=== PATIENT | female | born 1945 | race Caucasian/White ===

== ENCOUNTER → 2016-11-10 22:04 | Outpatient (CLI) | payer MEDICARE, OTHER ==
[~2016-11-10 22:04] MED LIST: ACETAMINOPHEN325 MG PO; ADVIL200 MG PO; FLAGYL500 MG PO; FLORAJEN3 CAPS460 MG PO; HYDROCHLOROTHIA25 MG PO; OMEPRAZOLE20 M1 PO; UROCIT-K10 MEQ PO; VANCOMYCIN250 MG/51 PO
[2016-11-13 12:58] VITALS: BMI 28.7
== END | disposition home or self-care (01) ==
LOC: D.LABREF 22:04
DX: R19.7 Diarrhea, unspecified (principal)

== ENCOUNTER 2016-11-11 14:41 | Inpatient (IN) | payer MEDICARE, OTHER ==
[~2016-11-11] VITALS: Ht 152.4 cm; Wt 66.7 kg
[2016-11-11 15:39] VITALS: BP 115/62; BMI 28.7
--- NOTE | 2016-11-11 15:40 | NUR ---
PT ARRIVED VIA WHEELCHAIR VIA SPOUSE WITHOUT N/V AT THIS TIME. RESP EVEN AND NONLABORED LUNG SOUNDS CLEAR ABD. SOFT AND NONTENDER PT. DENIES PAIN AT THIS TIME. PT. C/O NAUSEA AT THIS TIME. SKIN PINK WARM AND DRY WITH GOOD TURGOR NO EDEMA CAPILLARY REFILL <3 SEC. 22G IV IN RIGHT FOREARM PATENT AND INTACT. BED AT LOWEST POSITION AND CALL LIGHT WITHIN REACH WILL CONTINUE TO MONITOR
[2016-11-11 16:02] VITALS: BP 115/62
[2016-11-11] MEDS ORDERED: FLAGYL500 MG PO (16:20)
[2016-11-11 16:24] LABS: HEMATOCRIT 39.8 % (36.0-48.0); HEMOGLOBIN 13.8 g/dL (12-16); MCH 29.6 pg (26.0-34.0); MCHC 34.7 g/dL (31.0-37.0); MCV 85.2 fL (80.0-100.0); MEAN PLATELET VOLUME 10.2 fL (7.4-10.4); PLATELET COUNT 208 10x3/uL (130-400); RBC 4.67 10x6/uL (4.00-5.40); RDW 13.5 % (11.5-14.5); WBC 9.5 10x3/uL (4.8-10.8)
[2016-11-11] MEDS ORDERED: UROCIT-K10 MEQ PO (16:26)
[2016-11-11 16:49] LABS: ALBUMIN 2.7 g/dL (3.4-5.0); ANION GAP 8.8 mmol/L (8-16); BILIRUBIN - DIRECT 0.25 mg/dL (0.00-0.30); BILIRUBIN - INDIRECT 0.37 mg/dL (0.00-1.00); BILIRUBIN - TOTAL 0.62 mg/dL (0.2-1.3); CALCIUM 7.9 mg/dL (8.5-10.1); CARBON DIOXIDE 33.1 mmol/L (21.0-32.0); CREATININE - SERUM 1.2 mg/dL (0.6-1.3); PROTEIN - SERUM 6.2 g/dL (6.4-8.2)
[2016-11-11 16:50] LABS: EOSINOPHILS 3 % (0-7); LYMPHOCYTES 23 % (15-50); MONOCYTES 4 % (2-11); NEUTROPHILS 44 % (40-80)
[2016-11-11 16:52] LABS: PLATELET ESTIMATE NORMAL
[2016-11-11 16:53] LABS: POTASSIUM - SERUM 2.9 mmol/L (3.5-5.1)
[2016-11-11 20:00] VITALS: BP 96/48
[2016-11-11] MEDS ORDERED: HYDROCHLOROTHIA25 MG PO (20:20)
[2016-11-11] MEDS ORDERED: ADVIL200 MG PO (20:21)
[2016-11-11] MEDS ORDERED: ACETAMINOPHEN325 MG PO (20:21)
[2016-11-11] MEDS ORDERED: OMEPRAZOLE20 M1 PO (20:23)
[2016-11-12] VITALS: BP 114/58
--- NOTE | 2016-11-12 01:19 | NUR ---
ASSESSED AT THE BEGINNING OF THE SHIFT. PT IS ALERT AND ORIENTED, ABLE TO VERBALIZE NEEDS. HER SON WAS VISITING AT THE BEGINNING AND THEN WENT HOME. ISOLATION REMAINS IN PLACE FOR C-DIFF. A STOOL WAS COLLECTED AND RESULTS CONFIRMS DX. SHE IS ABLE TO GET UP TO THE BATHROOM TO VOID BUT HER STOOLS ARE JUS LIKE WATER. THE BED IS LOW, RAILS UP X'S 2 WITH THE CALL LIGHT AT HAND.
[2016-11-12 04:00] VITALS: BP 91/49
[2016-11-12 06:33] LABS: HEMOGLOBIN 11.9 g/dL (12-16); MCH 28.9 pg (26.0-34.0); MEAN PLATELET VOLUME 10.9 fL (7.4-10.4); PLATELET COUNT 236 10x3/uL (130-400); RBC 4.12 10x6/uL (4.00-5.40); RDW 13.6 % (11.5-14.5)
[2016-11-12 06:40] LABS: ANION GAP 8.8 mmol/L (8-16); CALCIUM 7.7 mg/dL (8.5-10.1); CARBON DIOXIDE 28.3 mmol/L (21.0-32.0); CREATININE - SERUM 1.1 mg/dL (0.6-1.3); MAGNESIUM - SERUM 1.6 mg/dL (1.8-2.4); POTASSIUM - SERUM 3.1 mmol/L (3.5-5.1)
[2016-11-12 06:43] LABS: PHOSPHOROUS 1.4 mg/dL (2.5-4.9)
[2016-11-12 07:36] LABS: EOSINOPHILS 2 % (0-7); LYMPHOCYTES 20 % (15-50); MONOCYTES 19 % (2-11); NEUTROPHILS 29 % (40-80); PLATELET ESTIMATE NORMAL
[2016-11-12 07:53] VITALS: BP 130/73
--- NOTE | 2016-11-12 08:10 | HP ---
PATIENT: CHICHO PARRA MEDICAL RECORD: [id number] ACCOUNT: [id number] LOCATION:[id number] : 43 ADMISSION DATE: 11/11/16 HISTORY AND PHYSICAL EXAMINATION REASON FOR ADMISSION: Vomiting, severe diarrhea and fevers. HISTORY OF PRESENT ILLNESS: The patient is a 71-year-old female who had have outpatient pneumonia, treated with Levaquin and Zithromax 3 weeks ago. She felt well about 3 days ago when she developed onset of some diarrhea and nausea. Diarrhea was somewhat foul. She had some vague abdominal pain as well. She came to the office yesterday afternoon and white count was 11,000. Her potassium was low at 3.2 and sodium was 130. I recommended admission to the hospital for possible C. diff diarrhea, but she deferred to outpatient therapy. She was started on oral Flagyl and potassium and cannot tolerate these. This morning, she was somewhat confused and had low-grade fever has now been direct admitted to the hospital. She denies severe abdominal pain or gross bloody diarrhea. PAST MEDICAL HISTORY: Type 2 diabetes mellitus, essential hypertension, carpal tunnel syndrome bilaterally, history of diverticulitis, osteoarthritis, RLS, postmenopausal. PAST SURGICAL HISTORY: Laparoscopic cholecystectomy, TAHBSO with vaginal bladder suspension. SOCIAL HISTORY: Nonsmoker, nondrinker lifelong. She is . ALLERGIES: CODEINE CAUSING NAUSEA AND VOMITING. FAMILY HISTORY: Father at 79, had a lumbar fusion, MRSA infection, heart disease. Mother at 91. She had glaucoma, macular degeneration. One brother with diabetes and alcoholism. MEDICATIONS: Xanax 0.25 q.6 hours p.r.n. anxiety, diclofenac 50 mg b.i.d. p.c., HCTZ 25 mg p.o. q.a.m., metformin 500 mg at h.s., pravastatin 20 mg at h.s., Prilosec 20 mg daily, triamterene 1 q.a.m. REVIEW OF SYSTEMS: GENERAL: She has felt weak for about a week to 10 days. Low-grade fever in the last 3-4 days. Poor appetite. HEENT: No recent visual change, sinus congestion, or sore throat. RESPIRATORY: No SOB or cough. CARDIAC: No chest pain, claudication, palpitations or dizziness. GASTROINTESTINAL: She has had nausea with intermittent vomiting worse since starting Flagyl. She has had 5-6 malodorous stool a day of some with some blood noted in the stool. GENITOURINARY: Denies incontinence or dysuria. GYNECOLOGICAL: No vaginal bleeding. She is postmenopausal, 1. ENDOCRINE: Denies polyuria, polydipsia, heat or cold intolerance. NEUROLOGIC: No history of stroke, TIA, or vascular headaches. PSYCHIATRIC: Denies depression. PHYSICAL EXAMINATION: VITAL SIGNS: Temperature is 99.9 degrees Fahrenheit orally, pulse 92 and HISTORY AND PHYSICAL [id number] CHICHO PARRA regular, respirations are 18, blood pressure 115/62 with a sat of 93% on room air. GENERAL: The patient is alert and oriented. HEENT: Eyes are clear and nonicteric. Oropharynx unremarkable except for dry mucous membranes. NECK: Supple, without bruits or masses. CHEST: Clear. HEART: Regular rate without MGR. PMI appropriate. BREASTS: Symmetrical. ABDOMEN: Soft, minimally tender in the right upper quadrant. No rebound. Bowel sounds are hyperactive. Stools trace heme positive C. diff positive. EXTREMITIES: No CC&E. INTEGUMENT: No rash or icterus. NEUROLOGIC: Oriented times 3. Cranial nerves intact. Gait normal. LABORATORY DATA: White count 9500, H&H of 13 and 39.8, platelet count 208,000. Differential white count shows 44 neutrophils with 26 bands, 23 lymphs. Chemistry shows potassium low at 2.9, sodium 128, CO2 of 33.1, anion gap of 8, BUN 15, creatinine 1.2, glucose 182. Liver functions are normal. Lab amylase and lipase are normal. Hepatitis screen is pending. Stools shows positive C. diff. Culture is pending. Acute abdominal series is pending as well. ASSESSMENT: 1. Clostridium difficile colitis. 2. Hyponatremia. 3. Hypokalemia. 4. Diabetes mellitus. 5. Bandemia. 6. Hypertension, hyperlipidemia, postmenopausal, post-hysterectomy. PLAN: The patient admitted for IV fluid hydration, replacing electrolytes, IV Flagyl. Further workup to follow. TRANSINT:[id number] Voice Confirmation ID: [id number] DOCUMENT ID: [id number] RADHA CHING MD at 0810 CC: [id number] DICTATION DATE: 11/11/16 3428 FURNITURE ASSEMBLER: 11/11/16 2346 ADM IN [facility] [address] [id number]
--- NOTE | 2016-11-12 08:11 | NUR ---
AWAKE AND ALERT. ORIENTED X 3. DR. CHING HERE. LUNGS ARE CLEAR BILATERALLY, NO COUGH NOTED. SKIN IS INTACT WITHOUT REDNESS. SCD'S OFF AT THIS TIME. IV TO RIGHT FOREARM IS PATNET WITHOUT REDNESS AT INSERTION SITE. AT BEDSIDE. DENIES NEEDS.
--- NOTE | 2016-11-12 10:41 | NUR ---
RESTING QUIETLY IN BED VERY ANIMATED TODAY. REPORTS FEELING BETTER.
[2016-11-12 11:10] VITALS: BP 132/70
--- NOTE | 2016-11-12 12:30 | NUR ---
FSBS 155. GIVEN 2 UNITS REGULAR INSULIN SUBQ PER SS. LUNCH SERVED IN ROOM.
[2016-11-12 15:56] VITALS: BP 136/62
[2016-11-12 17:52] LABS: APPEARANCE HAZY (CLEAR); BILIRUBIN NEGATIVE (NEGATIVE); COLOR DK YELLOW (YELLOW); GLUCOSE NEGATIVE (NEGATIVE); KETONE NEGATIVE (NEGATIVE); LEUKOCYTE ESTERASE TRACE (NEGATIVE); NITRITE POSITIVE (NEGATIVE); PROTEIN NEGATIVE (NEGATIVE); SPECIFIC GRAVITY 1.015 (1.005-1.020); UROBILINOGEN NORMAL (NORMAL)
[2016-11-12 17:55] LABS: BACTERIA MODERATE /hpf (NONE SEEN); MUCUS <1+ /lpf (NONE SEEN); RED CELLS - URINE 0-5 /hpf (0-5); WHITE CELLS - URINE 0-5 /hpf (0-5)
--- NOTE | 2016-11-12 18:47 | NUR ---
ATE ALMOST ALL OF SUPPER. FSBS WAS 137 PRIOR TO MEAL. NO COVERAGE. DENIES NEEDS. NO CHANGES NOTED.
[2016-11-12 19:00] VITALS: BP 95/54
--- NOTE | 2016-11-13 02:00 | NUR ---
PATIENT IS RESTING IN BED COMFORTABLY. DENIES NEEDS @ THIS TIME INTRUCTED TO CALL IF NEEDED ANYTHING. VERBALIZED UNDERSTANDING. BED LOW, LOCKED, CALL LIGHT IN REACH.
--- NOTE | 2016-11-13 02:38 | NUR ---
REC'D PATIENT LYING SEMI FOWLERS IN BED. ALERT AND ORIENTED X4. DENIES PAIN @ THIS TIME. MUCUS MEMBRANES PINK AND MOIST. DENIES HEARING AND VISION PROBLEMS. LUNGS CLEAR IN ALL LOBES. ABDOMEN SOFT NON TENDER TO TOUCH. REPORTED LAST BM 11/12/16, STATED SHE HAS HAD DIARREA AND WOULD LIKE TO GET SOMTHING TO HELP HER STOP. IS ON CONTACT ISOLATION. FULL ROM IN UPPER AND LOWER EXTREMITIES. CAP REFILL <3 SECS. HAS RIGHT FA RUNNING AT 125ML. SKIN WARM, DRY, AND INTACT. DENIES ANY FURTHER NEEDS. INSTRUCTED TO CALL IF NEEDED ANYTHING. PATIENT VERBALIZED UNDERSTANDING. BED LOW, LOCKED, CALL LIGHT IN REACH.
--- NOTE | 2016-11-13 03:14 | NUR ---
EYES CLOSED RESPIRATIONS WITH EASE AND UNLABORED.
[2016-11-13 04:00] VITALS: BP 97/54
[2016-11-13 06:57] LABS: BASOPHILS 0.1 % (0.0-2.0); EOSINOPHILS 6.6 % (0-7); HEMATOCRIT 32.5 % (36.0-48.0); HEMOGLOBIN 10.8 g/dL (12-16); LYMPHOCYTES 21.1 % (15-50); MCH 28.6 pg (26.0-34.0); MCHC 33.2 g/dL (31.0-37.0); MCV 86.2 fL (80.0-100.0); MEAN PLATELET VOLUME 10.7 fL (7.4-10.4); MONOCYTES 12.5 % (2-11); NEUTROPHILS 58.7 % (40-80); PLATELET COUNT 220 10x3/uL (130-400); RBC 3.77 10x6/uL (4.00-5.40); RDW 14.3 % (11.5-14.5); WBC 7.9 10x3/uL (4.8-10.8)
[2016-11-13 07:16] LABS: ANION GAP 7.7 mmol/L (8-16); CALCIUM 7.3 mg/dL (8.5-10.1); CREATININE - SERUM 0.9 mg/dL (0.6-1.3); MAGNESIUM - SERUM 1.8 mg/dL (1.8-2.4)
[2016-11-13 07:20] LABS: PHOSPHOROUS 1.5 mg/dL (2.5-4.9); POTASSIUM - SERUM 3.7 mmol/L (3.5-5.1)
--- NOTE | 2016-11-13 07:41 | NUR ---
PATIENT IS IN ENTERIC ISOLATION. ISOLATION PRECAUTIONS MAINTAINED. PATIENT IS AWAKE, ALERT AND ORIENTED X'S 4. RESPIRATIONS ARE EVEN AND UNLABORED ON ROOM AIR. PATIENT DENIES NEEDS. BED IN LOWEST POSITION, CALL LIGHT IN REACH.
--- NOTE | 2016-11-13 07:45 | NUR ---
SITTING IN BED, DENIES NEEDS, ALERT AND ORIENTED, CALL LIGHT IN REACH, BED LOWEST POSITION, WILL CONTINUE TO MONITOR
[2016-11-13 08:14] VITALS: BP 107/54
[2016-11-13 12:07] VITALS: BP 112/64
[2016-11-13 12:58] VITALS: Ht 152.4 cm; Wt 66.7 kg
[2016-11-13 15:29] VITALS: BP 105/62
--- NOTE | 2016-11-13 19:50 | NUR ---
ASSESSMENT COMPLETED, NO ACUTE DISTRESS NOTED, VISITOR IN ROOM, PT DENIES PAIN OR NEEDS AT THIS TIME, ISOLATION AND FALL PRECAUTIONS IN PLACE, CL IN REACH, WILL MONITOR
--- NOTE | 2016-11-13 20:55 | NUR ---
MEDS GIVEN PER MAR, MELISSA WELL, DENIES NEEDS AT THIS TIME, CL IN REACH
--- NOTE | 2016-11-13 21:45 | NUR ---
LYING IN BED AWAKE, DENIES NEEDS, CL IN REACH
--- NOTE | 2016-11-13 23:41 | NUR ---
RESTING WITH EYES CLOSED, RESP WITH EASE, NO DISTRESS NOTED, CL IN REACH
[2016-11-14] VITALS: BP 104/56
[2016-11-14 04:00] VITALS: BP 139/70
[2016-11-14 05:09] LABS: BASOPHILS 0.2 % (0.0-2.0); EOSINOPHILS 5.1 % (0-7); HEMOGLOBIN 11.1 g/dL (12-16); IMMATURE GRANULOCYTES 1.3 % (0-5); LYMPHOCYTES 20.8 % (15-50); MCH 28.6 pg (26.0-34.0); MCHC 32.6 g/dL (31.0-37.0); MCV 87.6 fL (80.0-100.0); MEAN PLATELET VOLUME 10.8 fL (7.4-10.4); MONOCYTES 10.2 % (2-11); NEUTROPHILS 62.4 % (40-80); PLATELET COUNT 257 10x3/uL (130-400); RBC 3.88 10x6/uL (4.00-5.40); RDW 14.6 % (11.5-14.5); WBC 9.5 10x3/uL (4.8-10.8)
[2016-11-14 05:19] LABS: CALCIUM 7.7 mg/dL (8.5-10.1); CARBON DIOXIDE 25.3 mmol/L (21.0-32.0); CREATININE - SERUM 0.9 mg/dL (0.6-1.3)
[2016-11-14 05:22] LABS: POTASSIUM - SERUM 4.3 mmol/L (3.5-5.1)
--- NOTE | 2016-11-14 07:30 | NUR ---
PT IS RESTING IN BED WITH EYES OPEN. ALERT AND ORIENTED X 3. DENIES ACUTE DISCOMFORT AT THIS TIME. STATES: "I JUST DONT FEEL GOOD, I WISH DR CHING WOULD JUST FIX ME." CONTACT PRECAUTIONS OBSERVED. IV INFUSING TO RFA WITHOUT DIFFICULTY. NO REDNESS OR EDEMA NOTED AT THE INSERTION SITE. SR'S ARE UP X 2 IN BED. CALL LIGHT AND BEDSIDE TABLE ARE WITHIN EASY REACH.
[2016-11-14 07:58] VITALS: BP 134/79
--- NOTE | 2016-11-14 09:30 | NUR ---
PT IS RESTING IN BED WITH EYES OPEN. VOICED COMPLAINT OF NAUSEA, AND REQUESTED TO BE MEDICATED FOR IT. MEDICATED PER OCT. FAMILY MEMBER IS AT BEDSIDE.
--- NOTE | 2016-11-14 11:25 | NUR ---
PATIENT IN BED WITH IV INTACT. NO COMPLAINTS. CALL LIGHT WITHIN REACH. FAMILY AT BEDSIDE. CALL LIGHT WITHIN REACH.
[2016-11-14 11:45] VITALS: BP 147/71
--- NOTE | 2016-11-14 12:30 | NUR ---
I WAS NOTIFIED BY ANOTHER NURSE THAT THE PTS FRAN HAD CALLED TO SAY THE PT TOLD HER SHE NEEDED MEDICINE FOR NAUSEA. WHEN MED BROUGHT TO ROOM, PT DENIED ANY NAUSEA AT THIS TIME, OR NEED FOR MEDICATION. PT INSTRUCTED TO CALL ME IF SHE NEEDED ANYTHING. VERBAL UNDERSTANDING VOICED.
[2016-11-14 15:16] VITALS: BP 122/65
--- NOTE | 2016-11-14 15:34 | NUR ---
PT IS RESTING IN BED WITH EYES CLOSED. NO DISTRESS NOTED.
--- NOTE | 2016-11-14 18:22 | NUR ---
PT NOTED STANDING AT THE SINK WASHING HER HANDS. NO NEEDS VOICED.
[2016-11-14 20:00] VITALS: BP 153/71
--- NOTE | 2016-11-14 21:00 | NUR ---
REMAINS IN CONTACT ISOLATION FOR CDIFF AND ECOLI. FAMILY AT BEDSIDE PT IS AWAKE AND ALERT ORIENTED X 3 LUNGS CLEAR BILATERALLY BSA X 4 CALL LIGHT IN REACH SIDE RAILS UP X 2
[2016-11-15] VITALS: BP 142/75
--- NOTE | 2016-11-15 02:32 | NUR ---
CONTINUES TO REST QUIETLY NO ACUTE DISTRESS NOTED CALL LIGHT IN REACH SIDE RAILS UP X 2
--- NOTE | 2016-11-15 03:27 | NUR ---
PT SEEN. NO COMPLAINTS OF PAIN OR DISCOMFORT. REMAINS ON ENTERIC ISOLATION. CALL LIGHT IN REACH
[2016-11-15 04:00] VITALS: BP 145/74
--- NOTE | 2016-11-15 07:59 | NUR ---
RESTING IN BED, ALERT AND ORIENTED, DENIES NEEDS, CALL LIGHT IN REACH, BED LOWEST POSIITON, NO DISTRESS NOTED, WILL CONTINUE TO MONITOR
[2016-11-15 08:26] VITALS: BP 139/72
--- NOTE | 2016-11-15 08:45 | NUR ---
PT AOX4 RESP EVEN AND NONLABORED PT ABLE TO VOICE NEEDS AND DENIES NEEDS AT THIS TIME. IV TO LEFT UPPER ARM PATENT AND INTACT. VS WNL. PT RECEIVING IV ANTIBIOTICS AND IV FLUIDS. WILL CONTINUE TO MONITOR
[2016-11-15 12:18] VITALS: BP 139/75
[2016-11-15 16:29] VITALS: BP 144/80
[2016-11-15 19:00] VITALS: BP 146/71
[2016-11-16 04:00] VITALS: BP 126/64
--- NOTE | 2016-11-16 05:22 | NUR ---
PATIENT IS RESTING COMFORTABLY IN BED. NO DISTRESS. RESP EVEN AND UNLABORED. DENIED NEEDS AT THIS TIME. INSTRUCTED TO CALL IF NEEDED ANYTHING. VERBALIZED UNDERSTANDING. BED LOW, LOCKED, CALL LIGHT IN REACH.
[2016-11-16] MEDS ORDERED: VANCOMYCIN250 MG/51 PO (07:37)
[2016-11-16] MEDS ORDERED: FLORAJEN3 CAPS460 MG PO (07:38)
[2016-11-16 07:56] VITALS: BP 143/71
--- NOTE | 2016-11-16 08:08 | NUR ---
IN BED RESTING, CALL LIGHT IN REACH, DENIES NEEDS, ASSESSMENT COMPLETE, BED LOWEST POSITON
--- NOTE | 2016-11-16 08:30 | NUR ---
LYING IN BED,WITHOUT DISTRESS.NEEDS MET.CALL LIGHT IN REACH
--- NOTE | 2016-11-16 16:24 | NUR ---
DISCHARGE PAPERS AND INSTRUCTIONS GIVEN, QUESTIONS ANSWERED, IV REMOVED TIP INTACT, DISCHARGED PER WC WITH BELONGINGS
--- NOTE | 2016-11-19 20:28 | DS ---
PATIENT:CHICHO PARRA :41 MEDICAL RECORD: [id number] DISCHARGE SUMMARY ADMISSION DATE: 11/11/16 DISCHARGE DATE: 11/16/16 DISCHARGE DIAGNOSES: Clostridium difficile colitis, hypokalemia due to loss of potassium, hypomagnesemia, hyponatremia, hypophosphatemia. CONSULTANTS: ILENE Robertson. HOSPITAL COURSE: A 71-year-old old female, who had been several weeks past antibiotics for outpatient pneumonia. She developed high-volume diarrhea with foul odor, periods of abdominal pain and weakness. She was admitted to the hospital for these symptoms from the office as she was hypotensive, hypokalemic, hypomagnesemic, hyponatremic and hypophosphatemic. She was placed on IV fluids, electrolyte protocol to replace her deficiencies. She was placed on IV Flagyl and p.o. vancomycin due to her hypotension, dehydration and electrolyte abnormalities, and leukocytosis. The patient gradually improved. Her stool number decreased over 5 days to just 3 a day and more formed. Dr. Singh recommended increasing her vancomycin dose from 125 to 250 mg q.i.d. She is now improved, normotensive. Electrolytes have corrected. Her stools were improved. No abdominal pain and tolerating diet and discharged home today on vancomycin 250 p.o. q.i.d. to complete a 14-day course, lactose-free diet. ACTIVITY: As tolerated. She will see me in 1 week in the office with BMP then. DISCHARGE MEDICATIONS: Hydrochlorothiazide 25 mg p.o. q.a.m., Tylenol 325 q.4 p.r.n., omeprazole 20 mg p.o. daily, vancomycin oral suspension 250/5 one teaspoon p.o. q.i.d. p.c. and h.s. for 9 days, Florajen 3 capsules 460 mg 1 p.o. daily. BMP, magnesium, phosphorus my office in 7 days. Her discharge labs, H&H 11.1 and 34.1, white count 9500. Chemistries show potassium up to 4.3, BUN and creatinine 3 and 0.9, phosphorus 1.5 being corrected currently. Amylase and lipase were normal. TRANSINT:[id number] Voice Confirmation ID: [id number] DOCUMENT ID: [id number] RADHA CHING MD at 2028 CC: [id number] DICTATION DATE: 11/16/16 0743 CRANKSHAFT STRAIGHTENER: 11/16/16 1511 DIS IN 11/16/[id number] [facility] [address]
[2016-11-22 08:23] LABS: HEPATITIS C ANTIBODY <0.1 (0.0-0.9)
== END 2016-11-16 16:40 | disposition home or self-care (01) | DRG 372 ==
LOC: D.M2 14:41 → D.MS 15:19
PROVIDERS: ADMIT Family Medicine
DX: A04.7 Enterocolitis due to Clostridium difficile (principal); E87.1 Hypo-osmolality and hyponatremia; E11.9 Type 2 diabetes mellitus without complications; I10 Essential (primary) hypertension; E87.6 Hypokalemia; E83.39 Other disorders of phosphorus metabolism; E83.42 Hypomagnesemia; K57.90 Diverticulosis of intestine, part unspecified, without perforation or abscess without bleeding; M19.90 Unspecified osteoarthritis, unspecified site; R82.71 Bacteriuria

== ENCOUNTER → 2017-10-05 08:57 | Outpatient (CLI) | payer MEDICARE, OTHER ==
[2016-11-13 12:58] VITALS: BMI 28.7
== END | disposition home or self-care (01) ==
LOC: D.CT 08:57
DX: R91.1 Solitary pulmonary nodule (principal)